=== PATIENT | female | born 1985 | race Caucasian/White ===

== ENCOUNTER 2016-11-19 05:28 | Inpatient (IN) | payer BC, OTHER ==
[~2016-11-19] VITALS: Ht 162.6 cm; Wt 73.0 kg
[2016-11-19] VITALS (7 sets, daily range): BP systolic 108–128; BP diastolic 64–82; PULSE 69–80; RESP 16–20; TEMP 97.9–98.7; O2SAT 95–100
[~2016-11-19 05:28] MED LIST: PREN1TAB53 PO
--- OUTSIDE RECORDS SUMMARY | 2016-11-19 05:32 | XMS REPORT | Referral Summary ---
Author Organization Unknown Address Unknown Phone Unavailable Care Team Providers Care Career Resource Specialist Name Role Phone Sylvia Mason Primary Care Physician [phone] Encounter VC Date(s): 09/19/14 - 09/19/14 Via Mel[facility], Denisha Spencer, Family Medicine [address], [facility] [address] [place], [place] [address] Discharge Diagnosis: First trimester Discharge Diagnosis: Abdominal pain Discharge Disposition: Home or Self Care Attending Physician: Jem Mason MD Admitting Physician: Jem Mason MD Vital Signs Most recent to 1 oldest [Reference Range]: Temperature Oral 36.5 degC [35.8-37.3 degC] (09/19/14 9:23 AM) Blood Pressure 108/74 mmHg [90-140/60-90 mmHg] (09/19/14 9:23 AM) Problem List No data available for this section Allergies, Adverse Reactions, Alerts No Known Medication Allergies Medications acyclovir 400 mg oral tablet 1 tabs, Oral, BID, # 10 tabs, 2 Refill(s), Pharmacy: [id number], 1 tabs Oral BID Start Date: 07/23/14 Stop Date: 09/23/14 Status: Ordered Zofran ODT 4 mg oral tablet, disintegrating See Instructions, 1-2 tabs Oral every 8 hours as needed for nausea/vomting, # 20 Each, 0 Refill(s), Pharmacy: [id number], 1-2 tabs Oral every 8 hours as needed for nausea/vomting Special Instructions: 1-2 tabs Oral every 8 hours as needed for nausea/vomting Start Date: 09/19/14 Stop Date: 09/26/14 Status: Ordered Results Hematology Most recent to 1 oldest [Reference Range]: WBC [4.8-10.8 K/uL] 12.8 K/uL *HI* (09/19/14:39 AM) RBC [4.00-5.20 M/uL] 4.99 M/uL (09/19/14:39 AM) Hgb [12.0-16.0 14.8 gm/dL gm/dL] (09/19/14:39 AM) Hct [37.0-47.0 %] 43.2 % (09/19/14:39 AM) MCV [82.0-99.0 fL] 86.6 fL (09/19/14:39 AM) MCH [27.0-32.0 pg] 29.7 pg (09/19/14:39 AM) MCHC [32.0-36.0 34.3 gm/dL gm/dL] (09/19/14:39 AM) RDW [11.5-14.5 %] 13.1 % (09/19/14:39 AM) Platelet [150-400 332 K/uL K/uL] (09/19/14:39 AM) MPV [8.8-14.8 fL] 9.4 fL (09/19/14 9:39 AM) Neutrophils [51-75 80 % %] *HI* (09/19/14:39 AM) Band Man [0-8 %] 2 % (09/19/14:39 AM) Lymphocytes [20-46 13 % %] *LOW* (09/19/14:39 AM) Monocytes [4-11 %] 5 % (09/19/14:39 AM) Eosinophils [0-4 %] 0 % (09/19/14:39 AM) Basophils [0-2 %] 0 % (09/19/14 9:39 AM) Neutro Absolute 10.50 THOUS [1.90-7.00 THOUS] *HI* (09/19/14:39 AM) Lymph Absolute 1.66 THOUS [0.80-3.30 THOUS] (09/19/14 9:39 AM) Page Absolute 0.64 THOUS [0.30-1.00 THOUS] (09/19/14 9:39 AM) Eos Absolute 0.00 THOUS [0.00-0.50 THOUS] (09/19/14 9:39 AM) Baso Absolute 0.00 THOUS [0.00-0.20 THOUS] (09/19/14 9:39 AM) Differential Manual *ABN* (09/19/14 9:39 AM) Chemistry Most recent to 1 oldest [Reference Range]: Sodium Lvl [135-144 138 mEq/L mEq/L] (09/19/14 9:39 AM) Potassium Lvl 4.1 mEq/L [3.5-5.2 mEq/L] (09/19/14 9:39 AM) Chloride [99-111 107 mEq/L mEq/L] (09/19/14 9:39 AM) CO2 [22-31 mEq/L] 22 mEq/L (09/19/14 9:39 AM) AGAP [3-20] 9 (09/19/14 9:39 AM) BUN [7-19 mg/dL] 11 mg/dL (09/19/14 9:39 AM) Glucose Lvl [70-99 83 mg/dL mg/dL] (09/19/14 9:39 AM) Creatinine Lvl 0.68 mg/dL [0.57-1.11 mg/dL] (09/19/14 9:39 AM) eGFR [>60 mL/min] >60 mL/min 1 (09/19/14:39 AM) Calcium Lvl 9.5 mg/dL [8.9-10.5 mg/dL] (09/19/14 9:39 AM) Albumin Lvl [3.5-5.0 4.2 gm/dL gm/dL] (09/19/14 9:39 AM) Total Protein 7.4 gm/dL [6.4-8.3 gm/dL] (09/19/14 9:39 AM) Globulin [1.8-4.0 3.2 gm/dL gm/dL] (09/19/14 9:39 AM) ALT [0-55 unit/L] 13 unit/L (09/19/14 9:39 AM) AST [5-34 unit/L] 16 unit/L (09/19/14 9:39 AM) Alk Phos [40-150 76 unit/L unit/L] (09/19/14 9:39 AM) Bili Total [0.2-1.2 0.7 mg/dL mg/dL] (09/19/14 9:39 AM) Lipase Lvl [8-78 15 unit/L unit/L] (09/19/14 9:39 AM) Amylase Lvl [25-125 51 unit/L unit/L] (09/19/14 9:39 AM) 1Result Comment: Multiply eGFR results by 1.21 for race. Urinalysis Most recent to 1 oldest [Reference Range]: UA Color Yellow (09/19/14 9:48 AM) UA Appear Sl Cloudy (09/19/14 9:48 AM) UA pH [5.0-8.0] 5.5 (09/19/14 9:48 AM) UA Leuk Est Pos 1+ [Negative] *ABN* (09/19/14 9:48 AM) UA Nitrite Negative [Negative] (09/19/14 9:48 AM) UA Protein Negative [Negative] (09/19/14 9:48 AM) UA Glucose Negative [Negative] (09/19/14 9:48 AM) UA Ketones Pos 1+ [Negative] *ABN* (09/19/14 9:48 AM) UA Urobilinogen 0.2 mg/dL (09/19/14 9:48 AM) UA Bili [Negative] Negative (09/19/14 9:48 AM) UA Blood Trace *ABN* (09/19/14 9:48 AM) UA Spec Grav >=1.030 [1.003-1.030] (09/19/14 9:48 AM) Type Clean Catch (09/19/14 9:48 AM) UA WBC [0-4] 5-10 *ABN* (09/19/14 9:48 AM) UA RBC [0-2] 0-2 (09/19/14 9:48 AM) Epithelial Cells 20-50 (09/19/14 9:48 AM) UA Bacteria Rare (09/19/14 9:48 AM) UA Mucous Present (09/19/14 9:48 AM) Immunizations No data available for this section Procedures Procedure Date Related Diagnosis Body Site Collection of venous blood by venipuncture 09/19/14 Social History Social History Type Response Smoking Status Never smoker Assessment and Plan Extracted from: Title: Office Visit Note Author: Jem Mason MD Date: 09/19/14 Assessment/Plan Abdominal pain We will draw labs including pancreatic enzymes and treat with Zofran and fluids and she is to notify if she develops fever with persistent abdominal pain or bloody stools. We will check a UA to rule out pyelonephritis Ordered: Office Visit Level 4 Est 64415 First trimester Orders: ondansetron, See Instructions, 1-2 tabs Oral every 8 hours as needed for nausea/vomting, # 20 Each, 0 Refill(s), Pharmacy: [id number], 1- 2 tabs Oral every 8 hours as needed for nausea/vomting Amylase Level CBC w/ Differential Comprehensive Metabolic Panel Lipase Level Urinalysis with Culture if Indicated
--- OUTSIDE RECORDS SUMMARY | 2016-11-19 05:33 | XMS REPORT ---
Author Author Liu Henderson [facility] eClinicalWorks Address Unknown Phone Unavailable Care Team Providers Care Computer Tester Name Role Phone Liu Henderson CP Unavailable Allergies, Adverse Reactions, Alerts Substance Reaction Event Type N.K.D.A. Info Not Available Non Drug Allergy Problems Problem Type Condition Code Onset Dates Condition Status Assessment Other viral agents as the cause of diseases classified elsewhere B97.89 Active Assessment Acute upper respiratory infection, unspecified J06.9 Active Medications Medication Code System Code Instructions Start Date End Date Status Dosage Promethazine-Codeine [facility] [id number] 6.25-10 MG/5ML Orally every 6 hrs May 21, 2016 5 to 10 ml as needed Procedures Procedure Coding System Code Date OFFICE VISITEST PT CPT-4 33156 May 21, 2016 Vital Signs Date/Time: May 21, 2016 Blood Pressure Diastolic 70 mm Hg Blood Pressure Systolic 104 mm Hg Weight 129.2 lbs Temperature 98.1 F Results No Known Results Summary Purpose eClinicalWorks Submission
--- OUTSIDE RECORDS SUMMARY | 2016-11-19 05:33 | XMS REPORT | Continuity of Care Document ---
Author Author [facility] Organization [facility] Address Unknown Phone Unavailable Allergies Active Description Code Type Severity Reaction Onset Reported/Identified Relationship to Patient Clinical Status Yes No Known Allergies No Known Allergies Drug Allergy Unknown N/A 07/09/2016 Medications Problems Procedures Results Test Result Range URINALYSIS WITH MICROSCOPIC - 05/24/13 20:47 UA LEUKOCYTE ESTERASE DIPSTICK 1+ NEGATIVE UA NITRITE DIPSTICK NEGATIVE NEGATIVE UA PROTEIN DIPSTICK NEGATIVE NEGATIVE UA GLUCOSE DIPSTICK NEGATIVE NEGATIVE UA KETONE DIPSTICK NEGATIVE NEGATIVE UA UROBILINOGEN DIPSTICK NORMAL NORMAL UA BILIRUBIN DIPSTICK NEGATIVE NEGATIVE UA BLOOD DIPSTICK NEGATIVE NEGATIVE UA EPITHELIAL CELLS 1+ epi/hpf 0 - 1+ UA RBC 0-3 rbc/hpf 0 - 3 UA VOLUME FOR EXAM 12.0 mL (12mL STD) UA WBC 0-1 wbc/hpf 0 - 5 UA SPECIFIC GRAVITY 1.000 1.015-1.025 UR PH 7.0 5.0-7.0 URINE CULTURE - 05/24/13 20:47 Uncategorized URINALYSIS, ROUTINE - 07/09/16 00:37 UA LEUKOCYTE ESTERASE DIPSTICK 2+ NEGATIVE UA NITRITE DIPSTICK NEGATIVE NEGATIVE UA PROTEIN DIPSTICK NEGATIVE NEGATIVE UA GLUCOSE DIPSTICK NEGATIVE NEGATIVE UA KETONE DIPSTICK NEGATIVE NEGATIVE UA UROBILINOGEN DIPSTICK NORMAL NORMAL UA BILIRUBIN DIPSTICK NEGATIVE NEGATIVE UA BLOOD DIPSTICK 4+ NEGATIVE UA SPECIFIC GRAVITY 1.005 1.015-1.025 UR PH 7.0 5.0-7.0 UA MICROSCOPIC - 07/09/16 00:37 UA BACTERIA 1+ NEGATIVE UA EPITHELIAL CELLS 1+ epi/hpf 0 - 1+ UA RBC 10-20 rbc/hpf 0 - 3 UA VOLUME FOR EXAM 12.0 mL (12mL STD) UA WBC 20-50 wbc/hpf 0 - 5 URINE CULTURE - 07/09/16 00:37 Microbiology CBC W/DIFF - 07/09/16 00:44 EOSINOPHIL # 0.1 k/cumm 0.1-0.5 EOSINOPHIL % 1 % 2-4 GRANULOCYTE # 14.6 k/cumm 2.0-9.0 GRANULOCYTE % 72 % 50-75 LYMPHOCYTE # 4.1 k/cumm 1.0-4.0 LYMPHOCYTE % 21 % 20-30 MEAN CELL HGB 30.4 pg 27.0-33.0 MEAN CELL HGB CONCENTRATION 33.9 g/dL 32.0-37.0 MEAN CELL VOLUME 89.5 fl 80.0-100.0 MONOCYTE # 1.3 k/cumm 0.1-1.0 MONOCYTE % 7 % 4-6 RED BLOOD CELL 4.28 m/cumm 4.00-6.00 RED CELL DISTRIBUTION WIDTH 13.7 % 11.0- 15.6 WHITE BLOOD CELL 20.2 k/cumm 5.0-10.0 HEMOGLOBIN 13.0 gm/dL 12.0-16.0 HEMATOCRIT 38.3 % 37.0-47.0 PLATELET COUNT 257 k/cumm 150-450 METABOLIC PANEL, BASIC - 07/09/16 00:44 POTASSIUM 4.1 mmol/L 3.5-5.3 EST GFR (MDRD) > 60 mL/min > 59 ANION GAP 9 mmol/L 5-15 EST CrCl (CG) > 60 mL/min > 59 GLUCOSE 92 mg/dL 70-99 CALCIUM 9.1 mg/dL 8.5-10.1 BLOOD UREA NITROGEN 8 mg/dL 7-20 CREATININE 0.6 mg/dL 0.6-1.0 SODIUM 141 mmol/L 135-148 CHLORIDE 104 mmol/L 98-110 CARBON DIOXIDE 28 mmol/L 21-32 Encounters ACCT No. Visit Date/Time Discharge Status Pt. Type Provider Facility Loc./Unit Complaint [id number] 07/09/2016 00:05:00 2015 01:38:00 DIS Emergency Stacy ALY, [facility] W.EDW [id number] 05/24/2013 20:18:00 2012 22:39:00 DIS Emergency Arnaldo ALY, [facility] W.EDW [id number] 09/08/2015 10:12:00 Document Registration
--- OUTSIDE RECORDS SUMMARY | 2016-11-19 05:33 | XMS REPORT | Referral Summary ---
Author Author [facility] Organization [facility] Address Unknown Phone Unavailable Care Team Providers Care Customer Account Manager Name Role Phone Sylvia Mason Primary Care Physician [phone] Encounter VC Date(s): 11/24/15 - 11/24/15 [facility], Family Medicine [address] Spencer, [address] [address] Discharge Disposition: 01-Home or Self Care Attending Physician: Jem Mason MD Admitting Physician: Jem Mason MD Vital Signs Most recent to 1 oldest [Reference Range]: Temperature Oral 36.3 degC [35.8-37.3 degC] (11/24/15 9:58 AM) Blood Pressure 112/84 mmHg [90-140/60-90 mmHg] (11/24/15 9:58 AM) Problem List No data available for this section Allergies, Adverse Reactions, Alerts No Known Medication Allergies Medications acyclovir 400 mg oral tablet 400 mg 1 tabs, Oral, BID, # 10 tabs, 2 Refill(s), Pharmacy: [id number], 1 tabs Oral BID Start Date: 08/04/15 Stop Date: 08/04/16 Status: Ordered acyclovir 800 mg oral tablet 800 mg 1 tabs, Oral, TID, # 21 tabs, 0 Refill(s), Pharmacy: [id number], 1 tabs Oral TID Start Date: 11/24/15 Stop Date: 12/01/15 Status: Ordered Results No data available for this section Immunizations No data available for this section Procedures No data available for this section Social History Social History Type Response Smoking Status Never smoker Assessment and Plan No data available for this section
--- OUTSIDE RECORDS SUMMARY | 2016-11-19 05:33 | XMS REPORT ---
Author Author Moises Anne Organization [employer]ClinicalWorks Address Unknown Phone Unavailable Care Team Providers Care Stabilizing Machine Operator Name Role Phone Moises Anne CP Unavailable Allergies No Known Allergies Problems No Known Problems Medications No Known Medications Results No Known Results Summary Purpose eClinicalWorks Submission
[2016-11-19] MEDS ORDERED: LR 1,000 ML IV PRN (06:07)
[2016-11-19] MEDS ORDERED: CEFAZOLIN 2 GM in D5W 50ml 50 ML IV ONE (06:15)
[2016-11-19] MEDS ORDERED: FAMOTIDINE 20mg IVPB 50 ML IV ONE (06:15)
[2016-11-19] MEDS ORDERED: CITRIC ACID/SODIUM CITRATE 30 ML PO ONE (06:15)
[2016-11-19] MEDS ORDERED: LIDOCAINE 1% (10mg/ml) 2ml SDV ID PRN (06:15)
[2016-11-19 06:45] LABS: BASOPHILS % (AUTO) 0.3 % (0-2); EOSINOPHILS # (AUTO) 0.1 T/MM3 (0-0.5); EOSINOPHILS % (AUTO) 1.2 % (0-4); HGB - HEMOGLOBIN 14.1 GM/DL (12-16); IMMATURE GRANULOCYTE % (AUTO) 0.9 % (0.0-0.5); LYMPHOCYTES # (AUTO) 3.4 T/MM3 (1-4.8); LYMPHOCYTES % (AUTO) 28.6 % (23-45); MEAN CORPUSCULAR HGB 30.3 UUG (26-34); MEAN CORPUSCULAR HGB CONC(MCHC 33.6 GM/DL (31-37); MEAN CORPUSCULAR VOLUME 90.3 UM3 (80-100); MONOCYTES # (AUTO) 0.7 T/MM3 (0-0.8); NEUTROPHILS #(AUTO)-ABSOLUTE 7.4 T/MM3 (1.8-7.7); RED BLOOD COUNT 4.65 M/MM3 (4.00-5.20); WBC - WHITE BLOOD COUNT 11.8 T/MM3 (4.5-11.0)
--- NOTE | 2016-11-19 06:54 | ANESOB ---
Epidural/ Date/Time DATE: 11/19/16 TIME: 06:54 Preop Diagnosis Procedure: Plan: Spinal Height: 5 ' 4.00 " Weight: 73.000 kg BMI: kg/m2 P:2 Medications & Allergies Inpatient Medications Current Medications Medications (Trade) Dose Ordered Sig/Fatou Start Time Stop Time Status Last Admin Dose Admin Lactated Ringer's (Lactated Ringers) 1,000 ml @ 150 mls/hr Q6H40M PRN 11/19/16 06:07 Lidocaine HCl (Xylocaine 1%) 0.2 mg PRN PRN 11/19/16 06:15 Vits W-Ca,Fe,Fa(<1MG) () 1 Tab Tablet, 1 TAB PO DAILY, ( Reported) Last Taken: on 11/18/16 2200 Coded Allergies: No Known Allergies (Unverified , 08/18/13) Medical/Surgical History Anesthesia PMH: Denies: *Diabetes, Anesthesia Reactions, Arthritis, Cancer, Clotting Problems, Glaucoma, Malignant Hyperthermia, Renal Disease, Thyroid Disease Smoking Status: Never smoker Does patient use chewing tobac: No Second Hand Exposure: No Substance Use Type: does not use Alcohol Intake: none Anesthesia Adverse Reactions: FOUND none Family Hx of Anesthesia Advers: none Hx of Motion Sickness: No Complications During : No Pertinent Findings Laboratory Tests 11/19/16 06:03 Physical Exam Respiratory: Bilat breath sounds equal, Lungs clear Cardiovascular: No murmur, Regular rate, rhythm Airway Assessment Mallampati Score: I TMD: 3 Fingerbreadths Neck Extension: Good Overall Assessment: No Airway Concerns ASA: 2 Discussion Discussed risks/options/alternatives of anesthesia. Patient consents. Nursing pain assessment noted. Present for Discussion: Present: Spouse Attestation Statement Prior to the delivery of any anesthetic medication, I examined the patient, developed the plan, obtained the patient's consent and discussed the risk and benefits of the procedure with the patient/guardian. If the note happens to be signed after anesthesia start time, it is only due to providing efficient care of the patient and documenting at a time when the computer is available. YOSEF OLEARY CRNA Nov 19, 2016 06:54
[2016-11-19] MEDS ORDERED: NALOXONE 0.4mg/ml INJECTION IV PRN (07:00)
[2016-11-19] MEDS ORDERED: DiphenhydrAMINE 50 MG/ML INJECTION IV PRN (07:00)
[2016-11-19] MEDS ORDERED: NALBUPHINE 10mg/ml INJECTION IV PRN (07:00)
[2016-11-19] MEDS ORDERED: ONDANSETRON 4mg/2ml INJECTION IV PRN (07:00)
[2016-11-19] MEDS ORDERED: MORPHINE SULFATE PF 5mg/10ml VL (DURAMORPH) ONE (07:03)
[2016-11-19] MEDS ORDERED: FENTANYL 100mcg/2ml INJECTION ONE (07:03)
[2016-11-19] MEDS ORDERED: ONDANSETRON 4mg/2ml INJECTION ONE (07:03)
[2016-11-19] MEDS ORDERED: EPHEDRINE SULFATE 50mg/ml INJECTION ONE (07:05)
[2016-11-19] MEDS ORDERED: D5LR 1,000 ML IV SCH (08:18)
[2016-11-19] MEDS ORDERED: MILK OF MAGNESIA 30 ML SUSP PO PRN (08:30)
[2016-11-19] MEDS ORDERED: CALCIUM CARBONATE 500mg Chewable TAB PO PRN (08:30)
[2016-11-19] MEDS ORDERED: HYDROCORTISONE 2.5% CREAM 30 GM RECTALLY PRN (08:30)
[2016-11-19] MEDS ORDERED: ACETAMINOPHEN 500 MG TABLET PO PRN (08:30)
[2016-11-19] MEDS: OXYTOCIN 30 UNIT in D5LR 500 ML IV SCH ×2 (08:51→14:35)
[2016-11-19] MEDS: DOCUSATE CALCIUM 240 MG CAPSULE PO SCH (09:00)
[2016-11-19] MEDS: SIMETHICONE 80 MG CHEWABLE TABLET PO CHEW SCH ×4 (09:30→21:29)
[2016-11-19] MEDS: HYDROCODONE/APAP 5 mg/325 mg TABLET PO PRN ×3 (11:40→21:29)
[2016-11-19] MEDS: IBUPROFEN 800 MG TABLET PO PRN ×2 (11:40→15:47)
--- NOTE | 2016-11-19 12:47 | OPNOTEF ---
DATE OF OPERATION 11/19/2016 PREOPERATIVE DIAGNOSIS Term , prior x 2. POSTOPERATIVE DIAGNOSIS Term , prior x 2. PROCEDURE Repeat low transverse section. SURGEON Francine Sandoval MD ELEMENTARY SCHOOL DIRECTOR Franck Brar, [employer] ANESTHESIA Combo spinal/epidural. - Sajan Martinez CRNA EBL 800 ml DESCRIPTION OF PROCEDURE Mrs. Oliveira was brought to the OR and given regional analgesia to good effect. She was then placed on the OR table in the supine position with left lateral displacement. A Bermeo catheter was placed to dependent drain. The abdomen was prepped and draped in the usual sterile fashion. The prior skin incision was excised in an elliptical pattern with a sharp knife, removing the scar. This was a Pfannenstiel incision. We then carried this down to fascia. Fascia was incised transversely. Fascia was then tented up. This was bluntly and sharply dissected free of rectus muscles. Rectus muscles were bluntly divided. Peritoneum was tented up and entered sharply. This was then extended vertically. The bladder blade was inserted. There were some adhesions of the peritoneum to the lower uterine segment. These were easily sharply and bluntly dissected free and the bladder blade then reinserted to protect the bladder. A low transverse uterine incision was made with a sharp knife. The lower uterine segment was fairly thin, particularly on the left. There was clear amniotic fluid. The baby's head was delivered in the vertex presentation. There was a snug nuchal cord that was reduced. Baby was bulb suctioned on the abdomen and then, after total delivery, further bulb suctioned. Cord was doubly clamped and cut and the baby was given to Dr. Contreras for care. This is a liveborn male with Apgars of 8/9, weighing 7 pounds, 13.8 ounces. The placenta was then expressed intact. It had a normal configuration and a normal-appearing three-vessel cord. The uterus was swept clear of membranes and then exteriorized. The myometrial incision was reapproximated with a running-locking O Monocryl. We inspected carefully for hemostasis. It was under good control. Uterus, tubes and ovaries were noted to be grossly normal and were returned to the abdominal cavity. We reinspected our myometrial incision, then continued our closure. Peritoneum was reapproximated with a running-nonlocking 2-0 Vicryl. Fascia was reapproximated with a running nonlocking 0 Vicryl. I reapproximated Kenny's with a couple of simple interrupted 2-0 Vicryls, then skin edges were reapproximated with a subcuticular style 3-0 undyed Vicryl. The wound was dressed with Steri-Strips and a sterile dressing. Counts were correct postoperatively x 2. The urine remained clear and free flowing throughout the procedure. Ms. Oliveira was then transferred to recovery in stable condition. KIRSTEN
[2016-11-19 15:20] LABS: HCT - HEMATOCRIT 37.1 % (36-46); HGB - HEMOGLOBIN 12.7 GM/DL (12-16); MEAN CORPUSCULAR HGB 30.5 UUG (26-34); MEAN CORPUSCULAR HGB CONC(MCHC 34.2 GM/DL (31-37); MEAN CORPUSCULAR VOLUME 89.2 UM3 (80-100); MEAN PLATELET VOLUME 9.8 UM3 (9.4-12.4); RED BLOOD COUNT 4.16 M/MM3 (4.00-5.20); WBC - WHITE BLOOD COUNT 16.5 T/MM3 (4.5-11.0)
[2016-11-19] MEDS: DiphenhydrAMINE 25 MG CAPSULE PO PRN ×2 (15:47→22:26)
--- NOTE | 2016-11-20 01:18 | NUR ---
Chart Check 24 hour chart check completed
--- NOTE | 2016-11-20 02:42 | NUR ---
SHIFT SUMMARY: VSS, pt's pain controlled with PO Motrin, Purcell 5 and Mylicon. Fundus firm at 2below umbilicus, scant-light lochia noted. Incision dressing dry and intact. Abdm binder in use for incisional support and pt comfort. IV SL in pt's left hand, no complications. Pt repositions self in bed. Pt has dangled and up to BR with RN supervision, no complications. RN provided pericare and changed fiona padx 3. Pt request to keep urinary cath in to allow for sleep. Urinary warren cath to dependent drain, adequate urine output. Pt tolerating PO fluids and general diet. Thigh high SCD's pumping bilaterally. Pt baby, no assistance from RN needed. RN discusses feeding frequency. Issac in room and supportive. Pt bonding with baby.
[2016-11-20 03:30] VITALS: BP 117/67; PULSE 87; RESP 16; TEMP 97.7; O2SAT 97
[2016-11-20] MEDS: HYDROCODONE/APAP 5 mg/325 mg TABLET PO PRN ×5 (03:49→21:26)
[2016-11-20] MEDS: IBUPROFEN 800 MG TABLET PO PRN ×3 (03:49→21:06)
[2016-11-20] MEDS: SIMETHICONE 80 MG CHEWABLE TABLET PO CHEW SCH ×4 (05:00→23:10)
[2016-11-20 07:45] VITALS: BP 115/77; PULSE 89; RESP 16; TEMP 97.6; O2SAT 97
[2016-11-20] MEDS: DOCUSATE CALCIUM 240 MG CAPSULE PO SCH (09:03)
--- NOTE | 2016-11-20 11:34 | PNPDOC ---
Progress Note PPD1 Rubella: Immune GBS: Negative Blood Type:O pos Subjective 11/20/16 Lochia: Minimal Pain: Controlled Voiding: Voiding Nausea and Vomiting: No Nausea/Vomiting Objective Vital Signs Date Time Temp Pulse Resp B/P Pulse Ox O2 Delivery O2 Flow Rate FiO2 11/20/16 07:45 97.6 89 16 115/77 97 Room Air General: Alert and Oriented Abdomen: Fundus Firm, Non-tender Incision: Clean/Dry/Intact, No Erythema Edema: None Assessment SP, Repeat C/S Plan Routine Care, Continue PNV CARLOS A ANGEL MD Nov 20, 2016 11:34
[2016-11-20 12:30] VITALS: BP 115/66; PULSE 88; RESP 18
[2016-11-20 17:10] VITALS: BP 111/74; PULSE 76; RESP 18; TEMP 98.2; O2SAT 95
[2016-11-20 21:23] VITALS: BP 119/76; PULSE 77; RESP 18; TEMP 97.7; O2SAT 95
[2016-11-21 01:10] VITALS: BP 107/68; PULSE 81; RESP 18; TEMP 98.3; O2SAT 96
[2016-11-21] MEDS: HYDROCODONE/APAP 5 mg/325 mg TABLET PO PRN ×4 (02:25→21:52)
--- NOTE | 2016-11-21 02:50 | NUR ---
Chart Check 24 hour chart check completed
--- NOTE | 2016-11-21 02:53 | NUR ---
Shift Summary Pt's VS stable. Fundus firm, scant lochia, and voiding w/o difficulty. Incision open to air, asymptomatic, and steri strips intact. Pt performing cares for self and baby with help of at bedside. Pain controlled with po pain meds as ordered, Motrin and Royal. Pt up ad tahmina in room and MC unit. Pt tolerating po fluids and regular diet. Binder on. Pt baby well in cradle hold and attentive to needs. Call beltran in reach. Will continue to monitor per plan of care.
[2016-11-21 04:53] VITALS: BP 112/67; PULSE 85; RESP 14; TEMP 97.8; O2SAT 97
[2016-11-21] MEDS: IBUPROFEN 800 MG TABLET PO PRN ×2 (05:13→21:51)
--- NOTE | 2016-11-21 08:39 | PNPDOC ---
Progress Note PPD2 Rubella: Immune GBS: Negative Blood Type:O pos Subjective 11/21/16 Lochia: Minimal Pain: Controlled Voiding: Voiding Nausea and Vomiting: No Nausea/Vomiting Objective Vital Signs Date Time Temp Pulse Resp B/P Pulse Ox O2 Delivery O2 Flow Rate FiO2 11/21/16 04:53 97.8 85 14 112/67 97 Room Air General: Alert and Oriented Abdomen: Fundus Firm, Non-tender, Soft Incision: Clean/Dry/Intact, No Erythema Edema: None Assessment SP, Repeat C/S Plan Routine Care, Continue PNV patient desires discharge home on POD#3 (tomorrow) CARLOS A ANGEL MD Nov 21, 2016 08:39
[2016-11-21 08:55] VITALS: BP 107/71; PULSE 68; RESP 14; TEMP 98.2; O2SAT 96
[2016-11-21] MEDS: SIMETHICONE 80 MG CHEWABLE TABLET PO CHEW SCH ×4 (08:57→21:51)
[2016-11-21] MEDS: DOCUSATE CALCIUM 240 MG CAPSULE PO SCH (08:57)
--- NOTE | 2016-11-21 15:16 | NUR ---
SHIFT SUMMARY VSS. FUNDUS FIRM, LOCHIA SCANT. PAIN CONTROLLED WITH ORAL PAIN MEDS, NORCO 5/325MG AND IBUPROFEN 800MG. ABDOMINAL BINDER. WELL X2. PROVIDED ALL SELF CARES AND BABY CARES.
[2016-11-21 16:30] VITALS: BP 116/73; PULSE 86; RESP 16; TEMP 97.8; O2SAT 97
[2016-11-22] VITALS: BP 129/70; PULSE 70; RESP 16; TEMP 97.9; O2SAT 95
--- NOTE | 2016-11-22 01:52 | NUR ---
Shift summary: VSS. Pt. is up ad tahmina and performing self cares. Reports small lochia. Incision is dry, intact and open to air. Pt. is using an abdominal binder. Pain controlled with Ibuprofen 800 mg and [place] 5/325 mg. FOB supportive and at bedside.
[2016-11-22 05:14] VITALS: BP 124/89; PULSE 78; RESP 16; O2SAT 96
[2016-11-22] MEDS: HYDROCODONE/APAP 5 mg/325 mg TABLET PO PRN ×2 (05:20→11:00)
[2016-11-22 07:50] VITALS: TEMP 98.1
[2016-11-22] MEDS ORDERED: IBUP-1547 PO (07:57)
[2016-11-22] MEDS ORDERED: HYDR-4246 PO (07:57)
[2016-11-22] MEDS ORDERED: DOCU240C40 PO (07:57)
[2016-11-22] MEDS: DOCUSATE CALCIUM 240 MG CAPSULE PO SCH (08:35)
[2016-11-22] MEDS: IBUPROFEN 800 MG TABLET PO PRN (08:35)
[2016-11-22] MEDS: SIMETHICONE 80 MG CHEWABLE TABLET PO CHEW SCH (10:22)
[2016-11-22 13:36] VITALS: BP 114/78; PULSE 69; RESP 18; TEMP 97.6; O2SAT 96
== END 2016-11-22 14:10 | disposition home or self-care (01) | DRG 766 ==
LOC: MC 05:28
PROVIDERS: ADMIT Obstetrics & Gynecology; ATTEND Obstetrics & Gynecology
PROC: 10D00Z1 Extraction of Products of Conception, Low, Open Approach (ICD-10-PCS; principal; 2016-11-19 07:38)
DX: O34.211 Maternal care for low transverse scar from previous cesarean delivery (principal); N85.8 Other specified noninflammatory disorders of uterus; O94 Sequelae of complication of pregnancy, childbirth, and the puerperium; O69.81X0 Labor and delivery complicated by cord around neck, without compression, not applicable or unspecified; Z3A.39 39 weeks gestation of pregnancy; Z37.0 Single live birth
CPT/HCPCS: 36415; 85025; 85027; 86850; 86900; 86901